=== PATIENT | female | born 1985 | race Caucasian/White ===

== ENCOUNTER 2017-11-09 09:30 | Outpatient (REF) | payer BC, SELFPAY ==
--- NOTE | 2017-11-09 09:30 | PAPFT_PTH ---
PATIENT: STANTON ORTIZ LOC: [facility] U#:[id number] AGE/SX: 32/F ROOM: RE11/09/[address]: CHAGO Wagoner : 1985 BED: DIS: 11/09/2017 SPEC #: [id number] RECD: 11/09/17 12:53 STATUS: BEBO REQ #: [id number] JANELLE: 11/09/17 09:[address]: Marion Estrada DEPT: [facility] Cytology RECD BY: Rebecca Ray ENTERED: 11/09/17 12:53 SP TYPE: PAPFT LINDA DR: Jamil Matute Tissues: 1 - CX/ENDOCX FOR PAP SMEARS Procedures: PAP THIN PREP/[facility] Screening HPV DNA PROBE Comments: [id number]
== END 2017-11-09 09:31 ==
LOC: LBN 09:30
PROVIDERS: PCP Family Medicine; Visit Provider Nurse Practitioner Family
DX: Z12.4 Encounter for screening for malignant neoplasm of cervix (principal); Z11.51 Encounter for screening for human papillomavirus (HPV)
CPT/HCPCS: 88142; 87624

== ENCOUNTER 2017-12-01 11:54 | Outpatient (CLI) | payer BC, SELFPAY ==
[2017-12-02 12:34] LABS: HIV-1/2 Ag & Ab Screen Negative (NEGAT)
== END 2017-12-01 11:55 ==
PROVIDERS: PCP Family Medicine; Visit Provider Nurse Practitioner Family
DX: Z11.3 Encounter for screening for infections with a predominantly sexual mode of transmission (principal); Z11.4 Encounter for screening for human immunodeficiency virus [HIV]
CPT/HCPCS: 36415; 87389

== ENCOUNTER 2018-07-15 00:19 | Outpatient (CLI) | payer BC, SELFPAY ==
--- NOTE | 2018-07-15 13:29 | DI.COMBO_ITS ---
SYMPTOMS/DIAGNOSIS: LEFT BREAST LUMP, N63.20 MAMMOGRAM AND LEFT BREAST ULTRASOUND: Mammograms were interpreted according to the usual protocol including computer analysis with CAD system, tomosynthesis and C view imaging. Mammogram and left breast ultrasound are interpreted in conjunction. The patient has a palpable area of abnormality of the upper outer quadrant of the left breast, which she has reportedly had for several years. The mammogram shows diffusely dense breast with some asymmetric density in the upper outer quadrant of the left breast without evidence of a discrete mass. Breast ultrasound shows no evidence of a mass or cyst in this area. No additional breast mass or clumped microcalcification seen. CONCLUSION: No specific evidence of malignancy at this time. I would suggest that routine screening examinations begin at age 40 unless there is breast symptomatology in the intervening period. Category 1, breast density category C. MQSA ASSESSMENT OF FINDINGS: Negative. Category 1. Patient will receive a letter notifying them of these results. Bi-RADS category C. The breasts are heterogeneously dense, which may obscure small masses.
== END 2018-07-15 00:39 ==
PROVIDERS: PCP Family Medicine; Visit Provider Nurse Practitioner Family
DX: N63.21 Unspecified lump in the left breast, upper outer quadrant (principal)
CPT/HCPCS: 76642; 77062; 77066; G0279